=== PATIENT | male | born 1990 | race Two or more races ===

== ENCOUNTER 2020-02-14 12:54 | Emergency (ER) | payer MEDICAID, OTHER ==
[2020-02-14] MEDS ORDERED: Ziprasidone HCl 20 MG Cap PO STA (13:44)
[2020-02-14] MEDS ORDERED: LORazepam 1 MG Tab PO ONE (13:44)
--- NOTE | 2020-02-14 13:56 | EDM.PDOCBH ---
<Kelechi Magaña M - Last Filed: 02/14/20 15:55> ED HPI GENERAL MEDICAL PROBLEM - General Chief Complaint: Behavioral/Psych Stated Complaint: MENTAL EVAL Time Seen by Provider: 02/14/20 13:35 Source of Information: Reports: Patient History Limitations: Reports: No Limitations - History of Present Illness INITIAL COMMENTS - FREE TEXT/NARRATIVE: Patient presents to the emergency department from [facility]. Per [facility] staff report, patient had a violent outburst while speaking with one of their therapists. They state he is not safe to be there as his medications get regulated. He is a new patient to them as they have only been seeing him for 2 to 3 weeks. He was also recently started on medications for bipolar disorder. Patient states that today he was visiting with his therapist when his uncle came in and turn the TV off and this made him very angry as he felt like his uncle was getting in his face. He states that he does hear voices but they are not telling him to do anything harmful. He has no thoughts of harming himself or others. He states he has been hearing voices for when he can remember all his life, he does see "ghosts "and this has been going on for about a year, he also reports smelling things and he noticed that this started about 2 to 3 months ago. Mom states she noticed he has been more depressed over about the past year. She states that he recently was in senior care in [place] for a violent outburst which he felt like he was being harassed by the neighbors so he was waving a gun at them, however in reality he was not being harassed. He was in senior care for approximately 6 months and has just recently gotten out. He then moved up here to [place] to be with his mom about 1 month ago. He does admit to having manic phases in the past. Patient states that in high school he did use hallucinogenic drugs for about 6 months. He states about a year ago he tried cocaine and did that for about a week. However he states he will no longer uses cocaine. Currently he admits to using marijuana and muscle relaxers weekly. Committal papers have been signed by the [facility] regarding this patient. - Related Data Allergies Allergy/AdvReac Type Severity Reaction Status Date / Time amoxicillin Allergy Vomiting Verified 02/14/20 13:43 Home Meds: Home Meds cloNIDine HCL [Clonidine HCl] 0.1 mg PO BEDTIME 02/14/20 [History] lamoTRIgine [Lamictal] 100 mg PO BID 02/14/20 [History] risperiDONE [Risperidone] 2 mg PO BEDTIME 02/14/20 [History] traZODone HCl [Trazodone HCl] 100 mg PO BEDTIME 02/14/20 [History] ED ROS GENERAL - Review of Systems Review Of Systems: See Below Constitutional: Reports: No Symptoms HEENT: Reports: No Symptoms Respiratory: Reports: No Symptoms Cardiovascular: Reports: No Symptoms Endocrine: Reports: No Symptoms GI/Abdominal: Reports: No Symptoms : Reports: No Symptoms Musculoskeletal: Reports: No Symptoms Skin: Reports: No Symptoms Neurological: Reports: No Symptoms Psychiatric: Reports: Agitation, Depression, Hallucinations (Auditory, visual and olfactory). Denies: Homicidal Ideation, Suicidal Ideation Hematologic/Lymphatic: Reports: No Symptoms Immunologic: Reports: No Symptoms ED EXAM, BEHAVIORAL HEALTH - Physical Exam Exam: See Below Exam Limited By: No Limitations General Appearance: Alert, WD/WN, No Apparent Distress Eye Exam: Bilateral Eye: PERRL Ears: Hearing Grossly Normal Nose: Normal Inspection Throat/Mouth: Normal Voice, No Airway Compromise Head: Atraumatic, Normocephalic Neck: Normal Inspection, Supple, Non-Tender, Full Range of Motion Respiratory/Chest: No Respiratory Distress, Lungs Clear, Normal Breath Sounds, No Accessory Muscle Use, Chest Non-Tender Cardiovascular: Normal Peripheral Pulses, Regular Rate, Rhythm, No Edema, No Murmur GI/Abdominal: Normal Bowel Sounds, Soft, Non-Tender, No Distention (Male) Exam: Deferred Rectal (Males) Exam: Deferred Back Exam: Normal Inspection, Full Range of Motion Extremities: Normal Inspection, Normal Range of Motion, Non-Tender, No Pedal Edema, Normal Capillary Refill Neurological: Alert, Normal Cognition, Oriented x 3 Psychiatric: Alert, Auditory Hallucinations (States that he has had these all his life.), Visual Hallucinations (States this has been going on for about the past year), Other (Has had olfactory hallucinations for the past 2 to 3 months; mom states he has been more depressed over the past year.). No: Homicidal Thoughts, Suicidal Plan, Suicidal Thoughts Skin Exam: Warm, Dry, Intact, Normal color, No rash #1 Interpretation EKG Date: 02/14/20 Time: 14:07 Rhythm: NSR Rate (Beats/Min): 87 [place]: Normal P-Wave: Present QRS: Normal ST-T: Normal QT: Normal Comparison: NA - No Prior EKG EKG Interpretation Comments: EKG interpretation per Dr. Reagan: Sinus rhythm at 87 bpm, nonspecific intraventricular conduction delay, T wave flattening aVF nonspecific, ST elevation in lead IIrepolarization abnormality, diffuse early repolarization pattern, QT C is normal. COURSE, BEHAVIORAL HEALTH COMP - Course Re-Assessment/Re-Exam: 1356 Patient is agreeable to having inpatient treatment. Patient's mom states she would be willing to transport him for treatment. 1500 CBC is unremarkable, chemistry reveals AST 60, ALT 160, alk phos 103, TSH 1.214, urine drug screen is negative blood alcohol is negative patient is Covid negative. 1510 Report called to [facility] in [place]. Dr. Smith is accepting care of the patient. He recommends the patient have an antiseizure medication prior to leaving our facility, however the patient is already taking Lamictal which is also an antiseizure medication. Patient will be transferred to [facility] by private vehicle. His mother has agreed for transport[facility] to us reporting that it is there policy/protocol that the patient be transported by ambulance or [employer]'s department. They state they will hold the bed for him until we are able to have him transferred there. Departure - Departure Disposition: DC/Tfer to Psych Hosp/Unit 65 Condition: Good Clinical Impression: Hallucinations - Discharge Information Referrals: Sondra Yang PA-C [Primary Care Provider] - Forms: ED Department Discharge Sepsis Event Note (ED) - Evaluation Sepsis Screening Result: No Definite Risk <Tamika Shafer V - Last Filed: 02/14/20 16:17> COURSE, BEHAVIORAL HEALTH COMP - Course Vital Signs: Last Vital Signs Temp 98.2 F 02/14/20 13:14 Pulse 99 02/14/20 13:14 Resp 18 02/14/20 13:14 BP 136/94 H 02/14/20 13:14 Pulse Ox 100 02/14/20 13:14 Orders, Labs, Meds: Active Orders 24 hr Category Date Time Status EKG Documentation Completion [RC] ASDIRECTED Care 02/14/20 13:48 Active EKG 12 Lead [EK] Stat Ther 02/14/20 13:47 Ordered Laboratory Tests 02/14/20 02/14/20 02/14/20 Range/Units 13:50 13:55 13:55 WBC 6.81 (4.23-9.07) K/mm3 RBC 5.25 (4.63-6.08) M/mm3 Hgb 14.0 (13.7-17.5) gm/dl Hct 43.3 (40.1-51.0) % MCV 82.5 (79.0-92.2) fl MCH 26.7 (25.7-32.2) pg MCHC 32.3 (32.2-35.5) g/dl RDW Std Deviation 41.8 (35.1-43.9) fL Plt Count 232 (163-337) K/mm3 MPV 10.0 (9.4-12.3) fl Neut % (Auto) 66.6 (34.0-67.9) % Lymph % (Auto) 18.4 L (21.8-53.1) % [place] % (Auto) 11.0 (5.3-12.2) % Eos % (Auto) 3.1 (0.8-7.0) Baso % (Auto) 0.3 (0.1-1.2) % Neut # (Auto) 4.54 (1.78-5.38) K/mm3 Lymph # (Auto) 1.25 L (1.32-3.57) K/mm3 [place] # (Auto) 0.75 (0.30-0.82) K/mm3 Eos # (Auto) 0.21 (0.04-0.54) K/mm3 Baso # (Auto) 0.02 (0.01-0.08) K/mm3 Sodium 137 (136-145) mEq/L Potassium 3.7 (3.5-5.1) mEq/L Chloride 104 (98-107) mEq/L Carbon Dioxide 26 (21-32) mEq/L Anion Gap 10.7 (5-15) BUN 11 (7-18) mg/dL Creatinine 1.0 (0.7-1.3) mg/dL Est Cr Clr Drug Dosing 116.09 mL/min Estimated GFR (MDRD) > 60 (>60) mL/min BUN/Creatinine Ratio 11.0 L (14-18) Glucose 94 (74-106) mg/dL Calcium 9.3 (8.5-10.1) mg/dL Total Bilirubin 0.3 (0.2-1.0) mg/dL AST 60 H (15-37) U/L ALT 160 H (16-63) U/L Alkaline Phosphatase 103 (46-116) U/L Total Protein 7.5 (6.4-8.2) g/dl Albumin 4.0 (3.4-5.0) g/dl Globulin 3.5 gm/dL Albumin/Globulin Ratio 1.1 (1-2) TSH 3rd Generation 1.214 (0.358-3.74) uIU/mL Urine Opiates Screen Negative (RSAQSK=298) Ur Buprenorphine Scrn Negative (CUTOFF=10) Ur Oxycodone Screen Negative (VNH9WK=578) Urine Methadone Screen Negative (WAO4UI=862) Ur Propoxyphene Screen Negative (RGMEJQ=624) Ur Barbiturates Screen Negative (YONXHH=052) Ur Tricyclics Screen Negative (DLRYNZ=287) Ur Phencyclidine Scrn Negative (CUTOFF=25) Ur Amphetamine Screen Negative (UWDQNU=658) U Methamphetamines Scrn Negative (PPQQIL=750) U Benzodiazepines Scrn Negative (SYVYBP=811) U Cocaine Metab Screen Negative (GPCWOI=666) U Marijuana (THC) Screen Negative (CUTOFF=50) Ethyl Alcohol 0.00 (0.00) gm% SARS-CoV-2 RNA (MUNA) (NEGATIVE) 02/14/20 Range/Units 13:55 WBC (4.23-9.07) K/mm3 RBC (4.63-6.08) M/mm3 Hgb (13.7-17.5) gm/dl Hct (40.1-51.0) % MCV (79.0-92.2) fl MCH (25.7-32.2) pg MCHC (32.2-35.5) g/dl RDW Std Deviation (35.1-43.9) fL Plt Count (163-337) K/mm3 MPV (9.4-12.3) fl Neut % (Auto) (34.0-67.9) % Lymph % (Auto) (21.8-53.1) % [place] % (Auto) (5.3-12.2) % Eos % (Auto) (0.8-7.0) Baso % (Auto) (0.1-1.2) % Neut # (Auto) (1.78-5.38) K/mm3 Lymph # (Auto) (1.32-3.57) K/mm3 [place] # (Auto) (0.30-0.82) K/mm3 Eos # (Auto) (0.04-0.54) K/mm3 Baso # (Auto) (0.01-0.08) K/mm3 Sodium (136-145) mEq/L Potassium (3.5-5.1) mEq/L Chloride (98-107) mEq/L Carbon Dioxide (21-32) mEq/L Anion Gap (5-15) BUN (7-18) mg/dL Creatinine (0.7-1.3) mg/dL Est Cr Clr Drug Dosing mL/min Estimated GFR (MDRD) (>60) mL/min BUN/Creatinine Ratio (14-18) Glucose (74-106) mg/dL Calcium (8.5-10.1) mg/dL Total Bilirubin (0.2-1.0) mg/dL AST (15-37) U/L ALT (16-63) U/L Alkaline Phosphatase (46-116) U/L Total Protein (6.4-8.2) g/dl Albumin (3.4-5.0) g/dl Globulin gm/dL Albumin/Globulin Ratio (1-2) TSH 3rd Generation (0.358-3.74) uIU/mL Urine Opiates Screen (BNVPPJ=715) Ur Buprenorphine Scrn (CUTOFF=10) Ur Oxycodone Screen (VJV9CX=819) Urine Methadone Screen (FMA0CH=939) Ur Propoxyphene Screen (VBHKFS=298) Ur Barbiturates Screen (LWOHAK=446) Ur Tricyclics Screen (QOWNVA=996) Ur Phencyclidine Scrn (CUTOFF=25) Ur Amphetamine Screen (PRRKXF=391) U Methamphetamines Scrn (YZHUQF=825) U Benzodiazepines Scrn (FVCNML=188) U Cocaine Metab Screen (QOMPRQ=469) U Marijuana (THC) Screen (CUTOFF=50) Ethyl Alcohol (0.00) gm% SARS-CoV-2 RNA (MUNA) Negative (NEGATIVE) Medications Discontinued Medications Generic Name Dose Route Start Last Admin Trade Name Efrainq PRN Reason Stop Dose Admin Lorazepam 1 mg 02/14/20 13:44 02/14/20 14:50 Ativan PO 02/14/20 13:45 1 mg ONETIME ONE Administration Ziprasidone 20 mg 02/14/20 13:44 02/14/20 14:50 Geodon PO 02/14/20 13:45 20 mg STAT STA Administration Discharge vs Psych Eval/Treatment:: 02/14/20 16:16 Care assumed from Patricio Goodwin ambulance staff will take the patient to [place] for transfer. Departure - Departure Time of Disposition: 16:17 Sepsis Event Note (ED) - Focused Exam Vital Signs: Vital Signs Temp Pulse Resp BP Pulse Ox 02/14/20 13:14 98.2 F 99 18 136/94 H 100
== END 2020-02-14 17:20 ==
LOC: JD.ED 12:54
DX: R44.0 Auditory hallucinations (principal); R44.1 Visual hallucinations; R44.2 Other hallucinations; F31.9 Bipolar disorder, unspecified; Z88.1 Allergy status to other antibiotic agents; Z20.828 Contact with and (suspected) exposure to other viral communicable diseases
CPT/HCPCS: 36415; 80053; 80179; 80306; 84443; 85025; 87635; 93005; 99285; A9270; U0002

== ENCOUNTER 2020-03-01 16:17 | Emergency (ER) | payer OTHER ==
--- NOTE | 2020-03-01 16:51 | EDM.PDOCBH ---
ED HPI GENERAL MEDICAL PROBLEM - General Chief Complaint: Behavioral/Psych Stated Complaint: MEDICAL CLEARANCE Time Seen by Provider: 03/01/20 16:30 Source of Information: Reports: Patient, RN Notes Reviewed - History of Present Illness INITIAL COMMENTS - FREE TEXT/NARRATIVE: 29 yr old male has been brought here by multiple [facility] deputies for what sounds like Psych issues. They state there is an order for "involuntary emergency comittment" but they do not have that with them. They states someone from [facility] will be coming over with that order. The patient is calm, in no apparent distress at time of my exam. He is answering questions appropriately. Denies alcohol or drug abuse. Denies hallucinations, any intent for self or other harm. - Related Data Allergies Allergy/AdvReac Type Severity Reaction Status Date / Time amoxicillin Allergy Vomiting Verified 03/01/20 16:29 Home Meds: Home Meds cloNIDine HCL [Clonidine HCl] 0.1 mg PO BEDTIME 02/14/20 [History] lamoTRIgine [Lamictal] 100 mg PO BID 02/14/20 [History] risperiDONE [Risperidone] 2 mg PO BEDTIME 02/14/20 [History] traZODone HCl [Trazodone HCl] 100 mg PO BEDTIME 02/14/20 [History] Past Medical History - Past Health History Medical/Surgical History: Denies Medical/Surgical History Social & Family History - Family History Family Medical History: Unobtainable - Tobacco Use Tobacco Use Status *Q: Never Tobacco User - Caffeine Use Caffeine Use: Reports: None - Recreational Drug Use Recreational Drug Use: No ED ROS GENERAL - Review of Systems Review Of Systems: See Below Constitutional: Denies: Fever, Chills HEENT: Denies: Throat Pain Respiratory: Denies: Shortness of Breath, Pleuritic Chest Pain, Cough Cardiovascular: Denies: Chest Pain GI/Abdominal: Denies: Abdominal Pain, Nausea, Vomiting Musculoskeletal: Reports: No Symptoms Skin: Reports: No Symptoms Neurological: Reports: No Symptoms Psychiatric: Denies: Depression, Hallucinations, Homicidal Ideation, Suicidal Ideation ED EXAM, BEHAVIORAL HEALTH - Physical Exam Exam: See Below General Appearance: Alert, No Apparent Distress Eye Exam: Bilateral Eye: PERRL Head: Atraumatic Neck: Supple Respiratory/Chest: Lungs Clear, Normal Breath Sounds Cardiovascular: Regular Rate, Rhythm GI/Abdominal: Soft, Non-Tender Extremities: Normal Inspection Neurological: Alert, Normal Mood/Affect, No Motor/Sensory Deficits Psychiatric: Alert, Normal Affect, Oriented. No: Suicidal Thoughts, Auditory Hallucinations, Visual Hallucinations, Pressured Speech, Threatening Behavior (no threatening behavior at time of exam but also wearing handcuffs) COURSE, BEHAVIORAL HEALTH COMP - Course Vital Signs: Last Vital Signs Temp 98.2 F 03/01/20 16:23 Pulse 117 H 03/01/20 16:23 Resp 16 03/01/20 16:23 BP 137/87 03/01/20 16:23 Pulse Ox 96 03/01/20 16:23 Orders, Labs, Meds: Laboratory Tests 03/01/20 03/01/20 03/01/20 Range/Units 16:46 16:49 16:49 WBC 7.57 (4.23-9.07) K/mm3 RBC 5.51 (4.63-6.08) M/mm3 Hgb 14.9 (13.7-17.5) gm/dl Hct 44.8 (40.1-51.0) % MCV 81.3 (79.0-92.2) fl MCH 27.0 (25.7-32.2) pg MCHC 33.3 (32.2-35.5) g/dl RDW Std Deviation 39.8 (35.1-43.9) fL Plt Count 255 (163-337) K/mm3 MPV 10.4 (9.4-12.3) fl Neut % (Auto) 67.4 (34.0-67.9) % Lymph % (Auto) 23.1 (21.8-53.1) % [place] % (Auto) 7.8 (5.3-12.2) % Eos % (Auto) 0.7 L (0.8-7.0) Baso % (Auto) 0.3 (0.1-1.2) % Neut # (Auto) 5.11 (1.78-5.38) K/mm3 Lymph # (Auto) 1.75 (1.32-3.57) K/mm3 [place] # (Auto) 0.59 (0.30-0.82) K/mm3 Eos # (Auto) 0.05 (0.04-0.54) K/mm3 Baso # (Auto) 0.02 (0.01-0.08) K/mm3 Sodium 138 (136-145) mEq/L Potassium 3.6 (3.5-5.1) mEq/L Chloride 102 (98-107) mEq/L Carbon Dioxide 23 (21-32) mEq/L Anion Gap 16.6 H (5-15) BUN 12 (7-18) mg/dL Creatinine 1.2 (0.7-1.3) mg/dL Est Cr Clr Drug Dosing 96.74 mL/min Estimated GFR (MDRD) > 60 (>60) mL/min BUN/Creatinine Ratio 10.0 L (14-18) Glucose 136 H (74-106) mg/dL Calcium 9.2 (8.5-10.1) mg/dL Total Bilirubin 0.2 (0.2-1.0) mg/dL AST 51 H (15-37) U/L ALT 118 H (16-63) U/L Alkaline Phosphatase 102 (46-116) U/L Total Protein 8.1 (6.4-8.2) g/dl Albumin 4.3 (3.4-5.0) g/dl Globulin 3.8 gm/dL Albumin/Globulin Ratio 1.1 (1-2) Urine Opiates Screen Negative (JXVTNU=553) Ur Buprenorphine Scrn Negative (CUTOFF=10) Ur Oxycodone Screen Negative (ITT4EH=874) Urine Methadone Screen Negative (UTN8MW=718) Ur Propoxyphene Screen Negative (XSPANJ=821) Ur Barbiturates Screen Negative (WSNZOQ=525) Ur Tricyclics Screen Negative (RVOCOL=021) Ur Phencyclidine Scrn Negative (CUTOFF=25) Ur Amphetamine Screen Negative (NQRWLL=957) U Methamphetamines Scrn Negative (FPRMXY=239) U Benzodiazepines Scrn Negative (PARKAH=679) U Cocaine Metab Screen Negative (HDSWLY=993) U Marijuana (THC) Screen Negative (CUTOFF=50) Ethyl Alcohol 0.00 (0.00) gm% SARS-CoV-2 RNA (MUNA) (NEGATIVE) 03/01/20 Range/Units 17:42 WBC (4.23-9.07) K/mm3 RBC (4.63-6.08) M/mm3 Hgb (13.7-17.5) gm/dl Hct (40.1-51.0) % MCV (79.0-92.2) fl MCH (25.7-32.2) pg MCHC (32.2-35.5) g/dl RDW Std Deviation (35.1-43.9) fL Plt Count (163-337) K/mm3 MPV (9.4-12.3) fl Neut % (Auto) (34.0-67.9) % Lymph % (Auto) (21.8-53.1) % [place] % (Auto) (5.3-12.2) % Eos % (Auto) (0.8-7.0) Baso % (Auto) (0.1-1.2) % Neut # (Auto) (1.78-5.38) K/mm3 Lymph # (Auto) (1.32-3.57) K/mm3 [place] # (Auto) (0.30-0.82) K/mm3 Eos # (Auto) (0.04-0.54) K/mm3 Baso # (Auto) (0.01-0.08) K/mm3 Sodium (136-145) mEq/L Potassium (3.5-5.1) mEq/L Chloride (98-107) mEq/L Carbon Dioxide (21-32) mEq/L Anion Gap (5-15) BUN (7-18) mg/dL Creatinine (0.7-1.3) mg/dL Est Cr Clr Drug Dosing mL/min Estimated GFR (MDRD) (>60) mL/min BUN/Creatinine Ratio (14-18) Glucose (74-106) mg/dL Calcium (8.5-10.1) mg/dL Total Bilirubin (0.2-1.0) mg/dL AST (15-37) U/L ALT (16-63) U/L Alkaline Phosphatase (46-116) U/L Total Protein (6.4-8.2) g/dl Albumin (3.4-5.0) g/dl Globulin gm/dL Albumin/Globulin Ratio (1-2) Urine Opiates Screen (LAQRCD=917) Ur Buprenorphine Scrn (CUTOFF=10) Ur Oxycodone Screen (SUE8RW=949) Urine Methadone Screen (OMJ4CO=347) Ur Propoxyphene Screen (OGUVFO=427) Ur Barbiturates Screen (DHLHQU=164) Ur Tricyclics Screen (FEKWSK=340) Ur Phencyclidine Scrn (CUTOFF=25) Ur Amphetamine Screen (DIMHZA=499) U Methamphetamines Scrn (YTOLJJ=885) U Benzodiazepines Scrn (IYIDDQ=801) U Cocaine Metab Screen (EKSWZD=478) U Marijuana (THC) Screen (CUTOFF=50) Ethyl Alcohol (0.00) gm% SARS-CoV-2 RNA (MUNA) Negative (NEGATIVE) Medications Discontinued Medications Generic Name Dose Route Start Last Admin Trade Name Freq PRN Reason Stop Dose Admin Haloperidol Lactate 10 mg 03/01/20 18:13 03/01/20 18:33 Haldol IM 03/01/20 18:14 10 mg ONETIME ONE Administration Re-Assessment/Re-Exam: [facility]ital [facility] filled out by staff from [facility] and signed off by local project scientist. He is medically stable, etoh, urine drug neg. Discussed with Dr Hidalgo, Psychiatrist for [facility] who does accept patient in transfer. He will be transported by [facility] deputies. Departure - Departure Time of Disposition: 18:05 Disposition: Home, Self-Care 01 Condition: Serious Clinical Impression: Paranoia, At risk of harming others Schizophrenia Qualifiers: Schizophrenia type: unspecified Qualified Code(s): F20.9 - Schizophrenia, unspecified - Discharge Information Referrals: PCP,None [Primary Care Provider] - Forms: ED Department Discharge Additional Instructions: Transfer to Psych Unit [facility] for direct admit. Patient has been given 10 mg Haldol IM prior to transfer. Sepsis Event Note (ED) - Evaluation Sepsis Screening Result: No Definite Risk
[2020-03-01] MEDS ORDERED: Haloperidol Lactate 5 MG/ML SDV IM ONE (18:13)
== END 2020-03-01 18:41 | disposition home or self-care (01) ==
LOC: JD.ED 16:17
DX: F20.9 Schizophrenia, unspecified (principal); F22 Delusional disorders; Z20.822 Contact with and (suspected) exposure to COVID-19; Z88.0 Allergy status to penicillin
CPT/HCPCS: 36415; 80053; 80179; 80306; 85025; 96372; 99283; 99285; J1630; U0002